=== PATIENT | male | born 1980 | race Caucasian/White ===

== ENCOUNTER 2017-09-12 21:30 | Inpatient (IN) | payer OTHER ==
[~2017-09-12] VITALS: Ht 177.8 cm; Wt 112.0 kg
[2017-09-12 21:38] VITALS: Ht 177.8 cm; Wt 112.0 kg
--- NOTE | 2017-09-12 22:26 | NUR ---
LAB AT BEDSIDE FOR BLOOD DRAW.
[2017-09-12 22:48] LABS: BASOPHIL % 0.8 % (0-2); PLATELET COUNT 223 x10^3mcL (130-400); RED CELL DISTRIBUTION WIDTH 13.7 % (11.5-14.5)
[2017-09-12 23:07] LABS: CALCIUM 7.9 mg/dL (8.5-10.1); CARBON DIOXIDE 28.6 mmol/L (21-32); CHLORIDE SERUM 101 mmol/L (98-107); CREATININE SERUM 0.8 mg/dL (0.7-1.3); GFR1 > 60 mL/min; GLUCOSE SERUM 114 mg/dL (74-106); POTASSIUM SERUM 3.3 mmol/L (3.5-5.1); SODIUM SERUM 136 mmol/L (136-145)
[2017-09-12 23:11] LABS: ALBUMIN 3.9 g/dL (3.4-5.0); ALKALINE PHOSPHATASE 98 U/L (46-116); ALT/SGPT 25 U/L (16-63); AMYLASE 53 U/L (25-115); AST/SGOT 21 U/L (15-37); BILIRUBIN TOTAL 0.7 mg/dL (0.20-1.00); LIPASE 112 IU/L (73-393); TOTAL PROTEIN, SERUM 7.9 g/dL (6.4-8.2)
--- NOTE | 2017-09-13 00:01 | NUR ---
PT SITTING IN BED IN A POSITION OF COMFORT, UPDATED PT ON PLAN OF CARE. PT DENIES ANY NEEDS AT THIS TIME. BED IN LOWEST POSITION, CALL LIGHT WITHIN REACH.
[2017-09-13] MEDS ORDERED: ATIVAN0.5 M1 PO (00:31)
--- NOTE | 2017-09-13 01:52 | NUR ---
REPORT CALLED TO KATHLEEN RN TO ASSUME CARE OF PT POST TRANSFER TO TELE UNIT.
[2017-09-13 02:40] VITALS: BP 146/86
--- NOTE | 2017-09-13 02:51 | NUR ---
PT ADMITTED TO [facility] FLOOR FROM ED VIA [facility] ACCOMPANIED BY NURSE. AMBULATORY WITH SLOW AND STEADY GAIT. AO X4. VERBAL WITH CLEAR SPEECH. NO S/S OF RESPIRATORY DISTRESS NOTED. LUNGS CLEAR BILATERALLY ON ROOM AIR. ON TELE 3, ST. DENIES ANY CHEST PAIN. ABD SOFT AND ROUND. BOWEL SOUNDS ACTIVE. DENIES ANY ABD PAIN; STATES JUST FEELS "DISCOMFORT." SKIN WARM AND DRY. IV SALINE LOCK TO LEFT AC INTACT. IV TO RIGHT HAND PATENT AND INTACT. IV FLAGYL INFUSING. NO S/S OF INFECTION NOTED. NO EDEMA NOTED. SCDS IN PLACE. SIDE RAILS UP. BED IN LOW POSITION. NO S/S OF DISTRESS NOTED. CALL LIGHT WITHIN REACH. WILL CONTINUE TO MONITOR.
[2017-09-13 03:26] LABS: FREE T4 1.29 ng/dL (0.76-1.46); FREE THYROXINE INDEX 3.1 ug/dL (1.4-4.5); T4(THYROXINE) 8.8 ug/dL (4.7-13.3)
[2017-09-13 03:30] LABS: microscopic required? NO
[2017-09-13 03:33] LABS: T3 TOTAL 1.17 ng/mL
[2017-09-13 04:12] LABS: urine erythrocyte NEGATIVE (NEGATIVE)
[2017-09-13 04:24] LABS: AMPHETAMINE QUAL UR NONE DETECTED (NEG <=1000)
[2017-09-13 05:02] LABS: CHOLESTEROL/HDL RATIO 3.3; MAGNESIUM 2.1 mg/dL (1.8-2.4); PHOSPHOROUS 2.4 mg/dL (2.5-4.9)
--- NOTE | 2017-09-13 06:00 | NUR ---
PT SLEPT FOR COUPLE OF HOURS. CURRENTLY RESTING WITH EYES CLOSED. BREATHING EQUAL AND UNLABORED. NO S/S OF RESPIRATORY DISTRESS NOTED ON ROOM AIR. IV NS INFUSING WELL. RESTING COMFORTABLY WITH RELAXED FACIAL FEATURES. CALL LIGHT WITHIN REACH. WILL CONTINUE TO MONITOR.
--- NOTE | 2017-09-13 07:40 | NUR ---
RECEIVED PATIENT LAYING IN BED A/O X4, CLEAR SPEECH, NO NEURO DEFICITS NOTED. TELE # [address], DENIES CHEST PAIN. BREATHING EVEN UNLABBORED ON RA, DENIES SOB. DX: APPENDICITIS, C/O SLIGHT DISCOMFORT TO RLQ 4/10, TOLERABLE AT THIS TIME. PATIENT IS NPO PENDING SURGICAL CONSULT. SKIN IS WARM CDI WITH IV TO LAC AND AND IV TO RH INTACT INFUSING NS AT 110 ML/HR FREE FROM REDNESS AND INFILTRATION. PATIENT IS CALM WITH CARE. INSTRUCTED TO CALL FOR ASSISTANCE IF NEEDED. CALL LIGHT WITHIN REACH, BED IN LOW POSITION. WILL CONTINUE TO MONITOR AND MAINTAIN SAFETY.
--- NOTE | 2017-09-13 09:17 | NUR ---
ROUNDS MADE- DR. LUIS, RESIDENT TEAM, CHARGE NURSE AND PRIMARY NURSE AT BEDSIDE. POC REVIEWED WITH PATIENT- DX APPENDICITIS, PLAN FOR SURGERY THIS AFTERNOON. PROCEDURE EXPLAINED TO PATIENT (LAP APPY POSSIBLE EXP LAP). ALL QUESTIONS AND CONCERNS ADDRESSED.
[2017-09-13 10:34] VITALS: BP 140/87
--- NOTE | 2017-09-13 11:59 | NUR ---
PATIENT TAKEN DOWN TO OR FOR PROCEDURE PER MD ORDER. SANDER PORTABLE MACHINE MADE AWARE.
--- NOTE | 2017-09-13 14:30 | NUR ---
RECEIVED PATIENT BACK FROM OR S/P LAUREN APPY- NON RUPTURED. PATIENT AWAKE AND ALERT ABLE TO TRANSFER SELF FROM [facility] TO BED. TELE # 3 APPLIED, PEANUT SHAKER MADE AWARE. IVF RESUMED TO . INCISION TO ABD X3 CDI W/DERMABOND COVERING SUTERS. VS: BP 151/92, MAP 114, HR 89, RR 20, TEMP 98.6, O2 SAT 97% ON RA, PAIN 4/10, TOLERABLE AT THIS TIME. ALL NEEDS ATTENDED TO. SAFETY PRECAUTIONS MAINTAINED.
--- NOTE | 2017-09-13 16:33 | NUR ---
AT 1628 PATIENT HAD X1 EPISODE OF N/V, ZOFRAN 4 MG IVP Q4H PRN GIVEN. AT 1633 PATIENT GIVEN DILAUDID 2 MG PO Q6H PRN FOR SHARP ABD PAIN 06/02 PER MD ORDER. ALL NEEDS ATTENDED TO. SAFETY PRECAUTIONS MAINTAINED. DR. MENDEZ AT BEDSIDE TO SPEAK WITH AND ASSESS PATIENT.
[2017-09-13 18:01] VITALS: BP 156/88
--- NOTE | 2017-09-13 18:20 | NUR ---
PATIENT SITTING UP IN BED RESTING COMFORTABLY, DENIES N/V OR ABD PAIN AT THIS TIME. PATIENT HAD X1 BM THIS AM BEFORE SURGERY, DENIES PASSING GAS S/P LAP APPY. INCISIONS TO ABD X3 REMAIN CDI. IV TO RH INTACT INFUSING IVF WELL. ALL NEEDS ATTENDED TO DURING SHIFT. SAFETY PRECAUTIONS MAINTAINED. WILL ENDORSE CARE TO ONCOMING NURSE.
--- NOTE | 2017-09-13 19:59 | NUR ---
Awake and verbally responsive. No resp.distress noted on room air. Encouraged use of I.S. Denies pain. No n/v noted. Abd'l.incisions x3 with dermabond intact. Will cont.to monitor. Call light within reach. Encouraged ambulation.
[2017-09-13 21:45] VITALS: BP 129/76
--- NOTE | 2017-09-14 04:03 | NUR ---
Afebrile. No significant change in condition noted. Ambulated well. Denies pain. Denies n/v. Voided. (-)flatus/bm. Using I.S.while awake. Cont.on IV rocephin, flagyl. In no apparent distress.
[2017-09-14 04:32] VITALS: BP 131/81
--- NOTE | 2017-09-14 07:20 | NUR ---
RECEIVED PT. IN BED A/A/O X4. NO SOB, NO N/V NOTED. DENIES ANY PAIN AT THIS TIME. PT. STATED HE HAS BEEN BURPING BUT NOT PASSING GAS YET. NS RUNNING AT 110 CC/HR. VIA IV H/L AT R HAND. SCD TO BLE MAINTAINED. BED IN LOW POS., CALL LIGHT WITHIN REACH. SIDE RAILS UP X3. EXPLAINED TO PT. THE IMPORTANCE OF BEING OOB TO AMBULATE POST-OP.
[2017-09-14 07:58] LABS: BASOPHIL % 0.2 % (0-2); PLATELET COUNT 236 x10^3mcL (130-400); RED CELL DISTRIBUTION WIDTH 13.3 % (11.5-14.5)
[2017-09-14 08:06] LABS: CALCIUM 8.7 mg/dL (8.5-10.1); CARBON DIOXIDE 24.3 mmol/L (21-32); CHLORIDE SERUM 105 mmol/L (98-107); CREATININE SERUM 0.7 mg/dL (0.7-1.3); GFR1 > 60 mL/min; GLUCOSE SERUM 101 mg/dL (74-106); POTASSIUM SERUM 3.9 mmol/L (3.5-5.1); SODIUM SERUM 139 mmol/L (136-145)
--- NOTE | 2017-09-14 10:00 | NUR ---
DR. RODRÍGUEZ, THE RESIDENTS, CHARGE NURSE, AND ATTENDING NURSE AT BEDSIDE. CAREPLAN DISCUSSED WITH PT. ALL QUESTIONS ANSWERED.
[2017-09-14 10:13] VITALS: BP 134/83
--- NOTE | 2017-09-14 12:30 | NUR ---
PT. STATED HE HAS PASSED GAS.
--- NOTE | 2017-09-14 17:28 | NUR ---
REMAINS IN STABLE CONDITION AT THIS TIME. NO ACUTE DISTRESS NOTED.
[2017-09-14 18:09] VITALS: BP 151/84
--- NOTE | 2017-09-14 19:36 | NUR ---
RECEIVED PATIENT IN BED AWAKE,ALERT AND ORIENTED WITH NO C/O POST OPERATIVE PAIN THIS TIME. FAMILY MEMBERS AT BEDSIDE. ABDOMEN SOFT. ROUND AND NON TENDER WITH ACTIVE BS. WITH X3 DERMABOND TO ABDOMEN CDI. IV TO RH INTACT AND INFUSING WELL. WILL CONTINUE TO MONITOR. CALL LIGHT WITHIN REACH.
[2017-09-14 21:31] VITALS: BP 148/81
--- NOTE | 2017-09-15 00:01 | NUR ---
STILL AWAKE WATCHING TELEVISION, DENIES PAIN AND DISCOMFORT AT THIS TIME.
[2017-09-15 04:59] VITALS: BP 147/86
--- NOTE | 2017-09-15 05:13 | NUR ---
SLEPT FAIRLY, DENIES POST OPERATIVE PAIN THROUGHOUT THE NIGHT. CHECKED AT INTERVALS FOR NEEDS AND SAFETY.
[2017-09-15] MEDS ORDERED: COLACE100 MG PO (07:22)
[2017-09-15] MEDS ORDERED: NORCO1 TA2 PO (07:23)
--- NOTE | 2017-09-15 07:23 | NUR ---
PT RECEIVED AND SEEN. AAOX4. APPEARS CALM. MED SURG, NO TELE. DENIES PAIN. SCDS IN PLACE. RESPIRATIONS EVEN AND UNLABORED ON ROOM AIR. PT HAS BRP. BS ACTIVE. PT IS AMBULATORY. 3 INCISIONS TO ABDOMEN PRESENT, APPEARS WNL. CALL LIGHT WITHIN REACH. WILL CONTINUE TO MONITOR.
[2017-09-15] MEDS ORDERED: GAS RELIEF80 MG PO (07:24)
--- NOTE | 2017-09-15 09:50 | NUR ---
DR RODRÍGUEZ AND MEDICAL TEAM VISITED PATIENT AT BEDSIDE THIS MORNING. UPDATED PATIENT ON PLAN OF CARE. ALL QUESTIONS ANSWERED AT THIS TIME. PATIENT AGREEABLE TO PLAN OF CARE. CALL LIGHT WITHIN REACH. WILL CONTINUE TO MONITOR.
[2017-09-15 10:15] VITALS: BP 155/84
[2017-09-15 10:24] LABS: BASOPHIL % 0.6 % (0-2); PLATELET COUNT 255 x10^3mcL (130-400); RED CELL DISTRIBUTION WIDTH 13.8 % (11.5-14.5)
[2017-09-15 10:27] LABS: CALCIUM 8.8 mg/dL (8.5-10.1); CARBON DIOXIDE 28.1 mmol/L (21-32); CHLORIDE SERUM 102 mmol/L (98-107); CREATININE SERUM 0.7 mg/dL (0.7-1.3); GFR1 > 60 mL/min; GLUCOSE SERUM 104 mg/dL (74-106); PHOSPHOROUS 2.6 mg/dL (2.5-4.9); POTASSIUM SERUM 3.5 mmol/L (3.5-5.1); SODIUM SERUM 141 mmol/L (136-145)
[2017-09-15 13:02] VITALS: BP 155/84
--- NOTE | 2017-09-15 13:30 | NUR ---
DISCHARGE TEACHING PERFORMED. PATIENT RECEIVED DISCHARGE PACKET AND PRESCRIPTION FOR PAIN MEDICINE. ALL QUESTIONS ANSWERED. PT VERBALIZED UNDERSTANDING. IV CATHETER REMOVED FROM RIGHT HAND WITH CATHETER TIP INTACT. PRESSURE APPLIED FOR TWO MINUTES AND IV SITE COVERED WITH STERILE BANDAGE. PATIENT TOLERATED WELL. PT ARM BANDS REMOVED. WILL CONTINUE TO MONITOR PATIENT.
--- NOTE | 2017-09-15 13:55 | NUR ---
PATIENT HAS BEEN DISCHARGED. PATIENT WAS ESCORTED OUTSIDE BY HOSPITAL STAFF MEMBER VIA WHEELCHAIR. PATIENT REMOVED ALL BELONGINGS FROM ROOM INCLUDING DISCHARGE PACKET. PATIENT TAKEN HOME BY FAMILY MEMBER IN PERSONAL AUTO.
== END 2017-09-15 13:55 | disposition home or self-care (01) | DRG 710 ==
LOC: ED 21:30 → DU 09-13 00:33 → MU 09-13 19:40
PROVIDERS: Family Medicine Sports Medicine; Specialist; Surgery; ADMIT Family Medicine
PROC: 0DTJ4ZZ Resection of Appendix, Percutaneous Endoscopic Approach (ICD-10-PCS; principal; 2017-09-13 12:30)
DX: A41.9 Sepsis, unspecified organism (principal); E83.39 Other disorders of phosphorus metabolism; I10 Essential (primary) hypertension; E83.51 Hypocalcemia; K35.80 Unspecified acute appendicitis; E87.6 Hypokalemia; F41.1 Generalized anxiety disorder; Z53.29 Procedure and treatment not carried out because of patient's decision for other reasons; K57.30 Diverticulosis of large intestine without perforation or abscess without bleeding; E66.01 Morbid (severe) obesity due to excess calories; I16.0 Hypertensive urgency; Z68.35 Body mass index [BMI] 35.0-35.9, adult; Z72.89 Other problems related to lifestyle
CPT/HCPCS: 83880; 84439; 94150; J0696; J1170; J2060; J2175; J2250; J2405; J3010; J3490; J7030; Q0092

== ENCOUNTER 2020-05-20 21:48 | Emergency (ER) | payer MEDICAID ==
[~2020-05-20] VITALS: Ht 177.8 cm; Wt 114.0 kg
[~2020-05-20 21:48] MED LIST: ATIVAN0.5 M1 PO; COLACE100 MG PO; GAS RELIEF80 MG PO; NORCO1 TA2 PO
[2020-05-20 21:56] VITALS: Ht 177.8 cm; Wt 114.0 kg
[2020-05-20 22:53] LABS: BASOPHIL % 0.4 % (0-2); PLATELET COUNT 248 x10^3mcL (130-400); RED CELL DISTRIBUTION WIDTH 13.4 % (11.5-14.5)
[2020-05-20 23:06] LABS: CALCIUM 8.8 mg/dL (8.5-10.1); CHLORIDE SERUM 101 mmol/L (98-107); GFR1 > 60 mL/min; GLUCOSE SERUM 113 mg/dL (74-106); POTASSIUM SERUM 3.8 mmol/L (3.5-5.1); SODIUM SERUM 139 mmol/L (136-145)
[2020-05-20 23:16] LABS: ALBUMIN 4.3 g/dL (3.4-5.0); ALKALINE PHOSPHATASE 92 U/L (46-116); ALT/SGPT 26 U/L (16-63); AST/SGOT 21 U/L (15-37); BILIRUBIN TOTAL 0.6 mg/dL (0.20-1.00); TOTAL PROTEIN, SERUM 8.2 g/dL (6.4-8.2)
[2020-05-20 23:48] VITALS: BP 181/96
== END 2020-05-20 23:48 | disposition home or self-care (01) ==
LOC: ED 21:48
PROVIDERS: Emergency Medicine
DX: F41.9 Anxiety disorder, unspecified (principal); I10 Essential (primary) hypertension
CPT/HCPCS: Q0092